=== PATIENT | female | born 1950 | race Hispanic/Latino ===

== ENCOUNTER 2024-10-05 06:46 | Day surgery (SDC) | payer OTHER ==
--- NOTE | 2024-10-01 11:15 | EKG ---
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
[2024-10-01 11:36] LABS: BASOPHILS # (AUTO) 0.02 K/uL (0.00-0.20); BASOPHILS % (AUTO) 0.4 % (0.0-5.0); EOSINOPHILS # (AUTO) 0.16 K/uL (0.00-0.70); EOSINOPHILS % (AUTO) 2.9 % (0.0-8.0); HEMATOCRIT 37.2 % (36-48); IMMATURE GRANULOCYTE ABSOLUTE 0.02 K/uL (0-1); LYMPHOCYTES # (AUTO) 1.4 K/uL (1.0-4.8); LYMPHOCYTES % (AUTO) 25.1 % (21.0-51.0); MEAN CORPUSCULAR HEMOGLOBIN 31.6 pg (27.0-33.0); MEAN CORPUSCULAR HGB CONC 33.1 g/dL (32.0-36.0); MEAN CORPUSCULAR VOLUME 95.6 fL (79-99); MONOCYTES # (AUTO) 0.3 K/uL (0.1-1.0); MONOCYTES % (AUTO) 5.6 % (3.0-13.0); NEUTROPHILS # (AUTO) 3.7 K/uL (1.8-7.7); NEUTROPHILS % (AUTO) 65.6 % (40.0-77.0); PLATELET COUNT (AUTO) 190 K/uL (130-400); RED BLOOD CELL COUNT(AUTO) 3.89 MIL/uL (4.00-5.50); RED CELL DISTRIBUTION WIDTH 14.3 % (11.0-15.5); WHITE BLOOD COUNT (AUTO) 5.6 K/uL (4.8-10.8)
[2024-10-01 11:48] LABS: CREATININE 1.3 mg/dL (0.5-1.0); POTASSIUM 4.1 mmol/L (3.5-5.1)
[2024-10-01 11:58] VITALS: BP 132/68; PULSE 67; RESP 17; TEMP 97.5
[2024-10-01 12:02] LABS: B-TYPE NATRIURETIC PEPTIDE 380 pg/mL (0-100)
[2024-10-01 12:11] LABS: INR 0.97 (0.85-1.15); PROTHROMBIN TIME 10.9 SEC (9.6-11.6)
--- NOTE | 2024-10-01 13:35 | NUR ---
VERIFY CALLED VALERIE JARRETT ASSISTIVE TECHNOLOGY SPECIALIST TO SEE IF PT NEEDS TO HOLD ELIQUIS 48 HRS PRIOR TO PROCEDURE. PER VALERIE PT TO HOLD 24 HOURS PRIOR. PT/DAUGHTER NOTIFIED
--- NOTE | 2024-10-01 14:23 | HMCIMG ---
CHEST 1VW REASON: R COMPARISON: None. FINDINGS: Single view of the chest was obtained. Lungs are clear. Heart size is normal. There is no pulmonary vascular congestion. Mediastinum and bony thorax appear unremarkable. IMPRESSION: 1. Normal single view chest x-ray.
--- NOTE | 2024-10-04 09:26 | NUR ---
REPORT REPORTED BUN AND CREAT/BNP TO VALERIE JARRETT NP. OK TO PROCEED
[~2024-10-05] VITALS: Ht 165.1 cm; Wt 68.0 kg
[2024-10-05] VITALS (10 sets, daily range): BP systolic 120–149; BP diastolic 57–72; PULSE 54–77; RESP 12–19; TEMP 97–97.2
[~2024-10-05 06:46] MED LIST: AMLO-257 PO; APIX5TAB PO; ASPI-1197 PO; ATEN25TA PO; ATOR40TA71 PO; DRON400T7 PO; LEVO50TA11 PO; VALS1TAB76 PO
[2024-10-05] MEDS: 0.9%NACL 1000ML 1,000 ML IV SCH (08:13)
[2024-10-05] MEDS ORDERED: IOHEXOL 350 MG/ML 100ML INFUS..BTL IV ONE ×2 (11:00→11:51)
[2024-10-05] MEDS ORDERED: LIDOCAINE HCL 400MG/20ML VIAL ONE (11:00)
[2024-10-05] MEDS ORDERED: HEParin 10,000 UNIT/10ML (1,000 UNIT/ML) VIAL ONE (11:00)
[2024-10-05] MEDS ORDERED: HEParin-NS 1,000 UNIT/500 ML 1,000 ML IV ONE (11:01)
[2024-10-05] MEDS ORDERED: NITROGLYCERIN 50MG VIAL ONE (11:01)
[2024-10-05] MEDS ORDERED: FENTanyl CITRate PF 50 MCG/1 ML 2ML VIAL ONE ×2 (11:07→12:14)
[2024-10-05] MEDS ORDERED: MIDAZOLAM HCL 1 MG/ML 2ML VIAL ONE ×2 (11:07→12:14)
[2024-10-05] MEDS ORDERED: ATROPINE 1MG SYG IVP ONE (11:25)
[2024-10-05] MEDS ORDERED: cloPIDOgrel 300MG TAB ONE (12:25)
--- NOTE | 2024-10-05 12:56 | PRN ---
PROCEDURE NOTE Indications: 1. Paroxysmal atrial fibrillation/flutter, on anticoagulation. 2. ACS-NSTEMI (05/28/2024) 3. HTN 4. CKD 3A 5. PAD Procedures: Coronary angiogram, PCI with balloon angioplasty and DAVID placement in the proximal RCA Introduction: After informed written consent was obtained, the patient was brought to the Catheterization Lab in the usual fasting state. Following sterile prep and drape, a time out was performed, then moderate sedation was administered, 1mg of Versed and 50mcg of Fentanyl, then 1% Lidocaine was infiltrated into the right femoral groin. Using a Modified Seldinger technique, a 6Fr Sheath was inserted into the right common femoral artery. While under fluoroscopic guidance, diagnostic coronary catheters were advanced over a wire into the central circulation where they were aspirated, flushed and placed to pressure monitoring, once the wire was removed. Coronary Angio: The left and right coronary arteries were engaged with appropriate catheters and angiography was performed under continuous pressure monitoring. Cardiac Findings: Left dominant system LM: Large caliber vessel with mild luminal irregularities. The vessel bifurcates into the LAD and LCX. LAD: Medium caliber vessel with 20% stenosis in the ostial LAD and diffuse 30% stenosis in the mid LAD. Diagonal one: Medium caliber vessel with mild luminal irregularities. LCx: Large caliber vessel with 20% stenosis in the ostial and mid LCX. The rest of the vessel has mild luminal irregularities. OM1: Small caliber vessel with mild luminal irregularities. OM2: Small caliber vessel with mild luminal irregularities. OM3: Small caliber vessel with mild luminal irregularities. LPLV: Small caliber vessel with mild luminal irregularities. LPDA: Small caliber vessel with mild luminal irregularities RCA: Small caliber vessel with 80% stenosis in the proximal RCA. Medications given: Versed 2mg, Fentanyl 75mcg, heparin 75 units/kg, clopidogrel 600 mg x 1 dose. Coronary Intervention: Guide catheter: JR4 Guidewire: 0.014 run-through guidewire After reviewing the above-mentioned findings the decision was made to intervene in the proximal RCA. The patient was administered heparin 75 units/kg and clopidogrel 600 mg x 1 dose. We then advanced the JR4 guide catheter and 0.014 run-through guidewire into the ostium of the RCA. We then advanced the 0.014 run-through guidewire across the areas stenosis and into the distal RCA. We then performed successful balloon angioplasty (2.0 x 15 mm) and DAVID placement (Medtronic khushbu Roberts 2.5 x 18 mm) in the proximal RCA. The stent was post dilated using an NC 2.75 x 8 mm balloon, achieving optimal results. The balloon was then removed and repeat angiography was performed which revealed a widely patent stent in the proximal RCA and ALESSIA three blood flow distally. The 0.014 run-through guidewire and JR4 guide catheter were then removed. The patient tolerated the procedure well and without issue. Complications: None Conscious Sedation Monitoring: Under my direct order and supervision, medication for moderate conscious sedation was administered by the nursing staff and the patients level of consciousness and physiological status was monitored by an independent trained nurse. Closure of Access Site: After the case completed the sheath was pulled and a 6Fr Angioseal was deployed in the right common femoral artery without complication. Conclusion: 1. 1V CAD, 80% stenosis in the proximal RCA status post successful PCI with balloon angioplasty and DAVID placement (Medtronic khushbu Roberts 2.5 x 18 mm) 2. Nonobstructive CAD in the LAD and LCX 3. Paroxysmal atrial fibrillation/flutter on anticoagulation 4. HTN 5. CKD 3A 6. PAD Recommendation: 1. Continue goal-directed medical therapy. 2. Start clopidogrel 75 mg daily. The patient will be on triple therapy, including aspirin 81 mg daily, clopidogrel 75 mg daily and Eliquis 5 mg BID for one month 3. Groin precautions 4. 4 hours of bedrest. 5. Start NS at 100 mL/hour x3 hours. 6. Okay to DC once bedrest is complete if the right groin is soft, free of bruising, bleeding, and or hematoma formation. 7. No driving for the next 48 hours 8. No heavy lifting or strenuous exercise for the next two weeks. 9. Please have the patient follow up with Dr. Lee in 1-2 weeks. REYNALDO LEE MD Oct 05, 2024 12:56
[2024-10-05] MEDS ORDERED: DEXTROSE 50%-WATER 50 ML DISP.SYRIN IV PRN (13:00)
[2024-10-05] MEDS ORDERED: GLUCAGON 1MG KIT 1 MG ML IM PRN (13:00)
[2024-10-05] MEDS ORDERED: 0.9%NACL 1000ML 1,000 ML IV SCH (13:00)
[2024-10-05] MEDS ORDERED: CLOP-31 PO (13:35)
--- NOTE | 2024-10-05 14:12 | NUR ---
Patient remains stable with vs wnl. NSR remains without complaint. Right groin soft without bruising, bleeding or hematoma. Dressing clean and dry. Pedal pulses intact to ble's. Ate most of lunch with assistance from Daughter. Reported given in full to NurseGabby.
--- NOTE | 2024-10-05 14:20 | NUR ---
RE: HANDOFF REPORT RECEIVED REPORT FROM JACK LUX USING SBAR AT PATIENT BEDSIDE. DRESSING TO RIGHT GROIN IS DRY/INTACT, NO BLEEDING OR HEMATOMA NOTED. FAMILY AT BEDSIDE. VITAL SIGNS STABLE.
--- NOTE | 2024-10-05 16:30 | NUR ---
PATIENT DISCHARGED FROM FACILITY VIA WHEELCHAIR BY NURSE AND ASSISTED INTO PRIVATE VEHICLE DRIVEN BY DAUGHTER
== END 2024-10-05 16:30 | disposition home or self-care (01) ==
LOC: DAH 06:46
PROVIDERS: ATTEND Internal Medicine Cardiovascular Disease
DX: R94.39 Abnormal result of other cardiovascular function study (principal); I25.10 Atherosclerotic heart disease of native coronary artery without angina pectoris; I12.9 Hypertensive chronic kidney disease with stage 1 through stage 4 chronic kidney disease, or unspecified chronic kidney disease; N18.31 Chronic kidney disease, stage 3a; I48.0 Paroxysmal atrial fibrillation; E03.9 Hypothyroidism, unspecified; I73.9 Peripheral vascular disease, unspecified; E66.9 Obesity, unspecified; Z68.25 Body mass index [BMI] 25.0-25.9, adult; Z79.01 Long term (current) use of anticoagulants; Z79.899 Other long term (current) drug therapy; Z79.890 Hormone replacement therapy
CPT/HCPCS: 80048; 83880; 85025; 85610; 85730; 36415; 71045; 93005; 93454; A4223 ×3; A4554; Q9965 ×3; C1887; C1894 ×2; C1725 ×2; C1760; C1874; C1769; J3010 ×2; J3490 ×2; J1644 ×2; J2250 ×2; Q9967 ×2; A4215; A4335; A4222; A4221; A4663; A4216; A4606; C9600; 96360; 96361; 99156; 99157; J0461